=== PATIENT | male | born 2005 | race Caucasian/White ===

== ENCOUNTER 2024-08-04 21:48 | Emergency (ER) | payer OTHER ==
[~2024-08-04] VITALS: Ht 175.3 cm; Wt 59.1 kg
[~2024-08-04 21:48] MED LIST: ACET-3385 PO; AZIT-164 PO; BENZ-227 PO; IBUP-1492 PO
[2024-08-05 01:25] VITALS: BP 119/59; PULSE 99; RESP 14; TEMP 97.2; O2SAT 98
[2024-08-05] MEDS ORDERED: BENZ-227 PO (02:47)
[2024-08-05] MEDS: AZITHROMYCIN 500 MG TABLET PO ONE (03:03)
== END 2024-08-05 03:17 | disposition home or self-care (01) ==
LOC: EMS 21:48
DX: J18.9 Pneumonia, unspecified organism (principal); Z79.899 Other long term (current) drug therapy
CPT/HCPCS: 99283; 71045; J0456